=== PATIENT | female | born 1990 | race African-American/Black ===

== ENCOUNTER 2021-02-01 18:17 | Emergency (ER) | payer OTHER ==
[2021-02-01 19:09] LABS: Clarity Slightly Cloudy (Clear); Ketone, Urine Negative (Negative)
[2021-02-01 19:19] LABS: Bilirubin Unable to Interpret (Negative); Blood, Urine Unable to Interpret (Negative); Glucose, Urine (Dipstick) Unable to Interpret mg/dL (Negative); Protein, Urine (Dipstick) Unable to Interpret mg/dl (Neg-Trace)
[2021-02-01 19:20] LABS: Leukocyte Unable to Interpret (Negative); Nitrite Unable to Interpret (Negative); Urobilinogen UNABLE TO INTERPRET mg/dL (Less than 2)
[2021-02-01 19:27] LABS: Bacteria/HPF 1+ HPF (None Seen); Mucous/LPF Rare LPF (<2+); RBC/HPF 21-50 HPF (0-3); Squamous Epithelial 0-3 HPF (0-3); WBC/HPF 21-50 HPF (0-3)
[2021-02-01 20:07] LABS: Pregnancy Test - Urine (BHCG) Negative (Negative); Pregu Control Bar Appear? YES (CONTROL BAR)
[2021-02-01 20:08] LABS: Pregu Control Background? CLEAR/WHITE (CLR/WHITE)
== END 2021-02-01 20:33 | disposition home or self-care (01) ==
LOC: CSHERS 18:17
DX: N39.0 Urinary tract infection, site not specified (principal); F17.210 Nicotine dependence, cigarettes, uncomplicated
CPT/HCPCS: 81003; 81015; 81025; 99284